=== PATIENT | female | born 1985 | race African-American/Black ===

== ENCOUNTER 2017-01-18 09:58 | Emergency (ER) | payer OTHER, MEDICAID ==
[~2017-01-18] VITALS: Ht 162.6 cm; Wt 73.0 kg
[2017-01-18 10:09] VITALS: BP 97/62; PULSE 80; RESP 16; O2SAT 100
[2017-01-18] MEDS ORDERED: XANA1TAB2 PO (10:19)
[2017-01-18] MEDS ORDERED: ZOLO100T PO (10:19)
[2017-01-18] MEDS ORDERED: CYCLOBENZAPRINE HCL 10 MG TAB PO ONE (10:30)
[2017-01-18] MEDS ORDERED: ACETAMINOPHEN/HYDROcodone 325 MG/5 MG TAB PO ONE (10:30)
[2017-01-18] MEDS ORDERED: IBUPROFEN 600 MG TAB PO ONE (10:30)
[2017-01-18 10:31] VITALS: TEMP 98.3
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
[2017-01-18] MEDS ORDERED: CYCL5TAB PO (12:08)
[2017-01-18] MEDS ORDERED: IBUP-232 PO (12:08)
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
== END 2017-01-18 12:46 | disposition home or self-care (01) ==
LOC: NEPD 09:58
DX: S16.1XXA Strain of muscle, fascia and tendon at neck level, initial encounter (principal); S13.4XXA Sprain of ligaments of cervical spine, initial encounter; V49.49XA Driver injured in collision with other motor vehicles in traffic accident, initial encounter; V47.5XXA Car driver injured in collision with fixed or stationary object in traffic accident, initial encounter; Y92.411 Interstate highway as the place of occurrence of the external cause
CPT/HCPCS: 72050; 99283